=== PATIENT | male | born 1975 | race Caucasian/White ===

== ENCOUNTER 2017-07-23 10:30 | Day surgery (SDC) | payer OTHER ==
--- NOTE | 2017-07-21 15:33 | HISTORY AND PHYSICAL E ---
History and Physical NAME: GRUPO ASHLEY : 1975 AGE: 41Y ADMITTED: 07/23/2017 ROOM: CHIEF COMPLAINT: Diarrhea, blood in the stool, family history of polyps. HISTORY: The patient presented regarding a colon exam. Referred by . The patient has lower abdominal pain, diarrhea. PAST SURGICAL HISTORY: 1. Cholecystectomy. 2. Tonsillectomy. 3. Lasix surgery. MEDICATIONS: 1. Nexium. 2. Prozac. 3. Viagra. 4. Trazodone. SOCIAL HISTORY: Does not smoke. Drinks rarely. FAMILY HISTORY: Father is alive, reflux. Mom has heart disease. REVIEW OF SYSTEMS: HEAD, EYES, EARS, NOSE, THROAT: The patient had eye surgery, Lasix. RESPIRATORY: Negative. CARDIAC: Negative. ENDOCRINE: Negative. GASTROINTESTINAL: Reflux, abdominal pain, hiatal hernia. NEUROPSYCHIATRIC: PTSD. PHYSICAL EXAMINATION: GENERAL: Pleasant, 40. VITAL SIGNS: Blood pressure 110/70, weight 196, temp is 98, respirations 18. HEAD, EYES, EARS, NOSE, THROAT: Normal. ABDOMEN: Soft. NEUROLOGIC: Exam negative. CONCLUSION: 1. Diarrhea, etiology undetermined. 2. PTSD. 3. Lower abdominal pain. PLAN: Colonoscopy, scheduled for 07/23. DICTATING PHYSICIAN: TRISTAN WILCOX M.D. [id number] Y#: [id number] ID: [id number] JOB#: [id number] ACCT: [id number] cc:TRISTAN WILCOX M.D. >
[~2017-07-23 10:30] MED LIST: EPINEPHRINE INJ 1 MG/10 ML DISP.SYRIN ONE; FENTANYL CITRATE INJ/PF 100 MCG/2 ML AMPUL ONE; FLUMAZENIL INJ 0.5 MG/5 ML VIAL ONE; GLUCAGON,HUMAN RECOMB 1 MG INJ ONE; GLYCOPYRROLATE INJ 0.4 MG/2 ML VIAL ONE; LIDOCAINE 2% JELLY 30 ML TUBE ONE; NALOXONE HCL INJ/PF 0.4 MG/1 ML SDV ONE; ONDANSETRON HCL INJ/PF 4 MG/2 ML SDV ONE
[2017-07-23] MEDS: MIDAZOLAM 2 MG/2 ML INJ ONE ×2 (11:08→11:12)
[2017-07-23 12:30] LABS: ABSOLUTE BASOPHILS # (AUTO) 0.1 10^3/uL (0.0-0.2); ABSOLUTE EOSINOPHILS # (AUTO) 0.2 10^3/uL (0.0-0.6); ABSOLUTE LYMPHOCYTES (AUTO) 1.9 10^3/uL (0.5-4.7); ABSOLUTE MONOCYTES (AUTO) 0.6 10^3/uL (0.1-1.4); ABSOLUTE NEUT (AUTO) 5.2 10^3/uL (1.7-8.2); BASOPHILS % (AUTO) 0.9 % (0-2); HEMATOCRIT 42.1 % (37.9-51.0); HEMOGLOBIN 14.8 g/dL (13.5-17.0); HGB HCT DIFFERENCE 2.3; LYMPHOCYTES % (AUTO) 23.8 % (13-45); MEAN CORPUSCULAR HEMOGLOBIN 30.1 pg (27.0-33.4); MEAN CORPUSCULAR HGB CONC 35.2 g/dL (32.0-36.0); MEAN CORPUSCULAR VOLUME 86 fl (80-97); MONOCYTES % (AUTO) 7.5 % (3-13); RED BLOOD COUNT 4.93 10^6/uL (4.35-5.55); RED CELL DISTRIBUTION WIDTH 12.7 % (11.5-14.0); SEGMENTED NEUTROPHILS % (AUTO) 65.8 % (42-78); WHITE BLOOD COUNT 7.8 10^3/uL (4.0-10.5)
[2017-07-23 12:48] VITALS: BP 107/71
[2017-07-23 13:06] LABS: ERYTHROCYTE SEDIMENTATION RATE 7 mm/hr (0-15)
--- NOTE | 2017-07-23 15:28 | DISCHARGE SUMMARY E ---
Discharge Summary NAME: GRUPO ASHLEY : 1975 AGE: 41Y ADMITTED: 07/23/2017 DISCHARGED: 07/23/2017 PROCEDURE: Colonoscopy, biopsy. HISTORY: A 41-year-old young male presented with diarrhea and patient underwent colonoscopy today. It shows rectal polyp and biopsy obtained of rectum and cecum. DISCHARGE PLAN: Soft diet. Awaiting biopsy results. Lab studies. Hold aspirin and nonsteroidal for a week. Serology for inflammatory bowel disease. Patient to see us in the office in the next few days. DICTATING PHYSICIAN: TRISTAN WILCOX M.D. [id number] PHY#: [id number] ID: [id number] JOB#: [id number] ACCT: [id number] cc:[facility] TRISTAN RODRIGUEZ M.D. >
--- NOTE | 2017-07-23 15:33 | OPERATIVE REPORT E ---
Operative Report NAME: GRUPO ASHLEY : 1975 AGE: 41Y DATE OF SURGERY: 07/23/2017 ROOM: PREOPERATIVE DIAGNOSES: 1. Diarrhea. 2. Blood in the stool. 3. Family history of polyps. POSTOPERATIVE DIAGNOSES: 1. External hemorrhoids, mild. 2. Rectal polyp. PROCEDURE: Colonoscopy. SURGEON: TRISTAN WILCOX M.D. TISSUE REMOVED OR ALTERED: Biopsy rectum, biopsy right colon. ANESTHESIA: Versed 4 and 75 fentanyl. DESCRIPTION: Rectal exam: External hemorrhoids rectum, small polyp. Biopsy obtained and polyp removed by biopsy 2-3 mm in size. Sigmoid descending colon normal. Transverse colon normal. Ascending colon normal. Cecum was coated with stool, which makes the mucosa slightly abnormal, most likely secondary to stool, lavage flush, and multiple biopsies obtained from cecum, ascending colon to rule out collagen colitis. Scope withdrawn from cecum, ascending, transverse, descending, sigmoid all the way to the rectum. CONCLUSION: No evidence of malignancy. Benign-looking polyp rectum removed by biopsy. PLAN: Soft diet. Baseline CBC. Awaiting biopsy results. DICTATING PHYSICIAN: TRISTAN WILCOX M.D. [id number] PHY#: [id number] ID: [id number] JOB#: [id number] ACCT: [id number] cc:[facility] TRISTAN RODRIGUEZ M.D. >
[2017-07-26 13:02] LABS: DEAMIDATED GLIADIN IGA AB 6 units (0-19); DEAMIDATED GLIADIN IGG AB 3 units (0-19); IMMUNOGLOBULIN A 2 188 mg/dL (90-386); T-TRANSGLUTAMINASE (TTG) IGG <2 U/mL (0-5)
== END 2017-07-23 12:45 | disposition home or self-care (01) ==
LOC: END 10:30
PROVIDERS: ATTEND Specialist
PROC: 0DBP8ZX Excision of Rectum, Via Natural or Artificial Opening Endoscopic, Diagnostic (ICD-10-PCS; 2017-07-23)
PROC: 0DBF8ZX Excision of Right Large Intestine, Via Natural or Artificial Opening Endoscopic, Diagnostic (ICD-10-PCS; principal; 2017-07-23 11:00)
DX: D12.8 Benign neoplasm of rectum (principal); K64.4 Residual hemorrhoidal skin tags; K44.9 Diaphragmatic hernia without obstruction or gangrene; F43.10 Post-traumatic stress disorder, unspecified; Z79.899 Other long term (current) drug therapy
CPT/HCPCS: 45380; 86256; 36415; 85025; 85652; 86140; 83520 ×5; 88305 ×2; J2250; J3010; J1610; J0171; J2310; J2405; J3490